=== PATIENT | female | born 1990 | race Two or more races ===

== ENCOUNTER 2018-10-24 23:27 | Emergency (ER) | payer OTHER ==
[~2018-10-24] VITALS: Ht 154.9 cm; Wt 68.0 kg
[2018-10-24] MEDS: CEFTRIAXONE 1 G in IV DEXTROSE 5% 50 ML IV ONE (23:20)
[2018-10-25] MEDS ORDERED: CEFTRIAXONE 1 G VIAL ONE (00:24)
[2018-10-25] MEDS ORDERED: SULFAMETH/TRIMETH 800/160 MG TABLET ONE (00:24)
[2018-10-25] MEDS ORDERED: OXYCODONE/APAP 5-325 MG TABLET ONE (00:24)
[2018-10-25] MEDS: SULFAMETH/TRIMETH 800/160 MG TABLET PO ONE (00:28)
[2018-10-25] MEDS: OXYCODONE/APAP 5-325 MG TABLET PO ONE (00:28)
--- NOTE | 2018-10-25 01:08 | NUR ---
IV removed. Catheter intact and site benign. Pressure and 4x4 gauze applied to site. No bleeding noted.
--- NOTE | 2018-10-25 01:12 | NUR ---
Patient discharged to home in stable conditon WITH MOTHER TAKING PATIENT HOME. Written and verbal after care instructions given. Patient verbalizes understanding of instructions.WALKED OUT OF ER WITH STEADY GAIT
[2018-10-25 01:14] VITALS: BP 118/79
== END 2018-10-25 01:16 | disposition home or self-care (01) ==
LOC: ER 23:30
DX: H60.13 Cellulitis of external ear, bilateral (principal)
CPT/HCPCS: 96365; 96366; 99283; J0696; A4663; J3490

== ENCOUNTER 2018-10-25 10:00 | Emergency (ER) | payer OTHER ==
[~2018-10-25] VITALS: Ht 154.9 cm; Wt 68.0 kg
[2018-10-25] MEDS ORDERED: diphenhydrAMINE 50 MG/1 ML VIAL IV ONE (10:15)
[2018-10-25] MEDS ORDERED: methylPREDNISolone SOD SUCC 125 MG/2 ML VIAL IV ONE (10:15)
[2018-10-25] MEDS ORDERED: FAMOTIDINE. 20 MG/2 ML VIAL IV ONE ×2 (10:15→10:24)
[2018-10-25] MEDS ORDERED: diphenhydrAMINE 50 MG/1 ML VIAL ONE (10:24)
[2018-10-25] MEDS ORDERED: methylPREDNISolone SOD SUCC 125 MG/2 ML VIAL ONE (10:24)
[2018-10-25 10:30] LABS: BASOPHILS % (AUTO) 0.8 % (0.0-2.0); EOSINOPHILS # (AUTO) 0.2 K/uL (0.0-0.7); EOSINOPHILS % (AUTO) 5.7 % (0.0-7.0); HEMATOCRIT 38.6 % (31.2-41.9); HEMOGLOBIN 13.1 g/dL (10.9-14.3); LYMPHOCYTES # (AUTO) 1.3 K/uL (20.0-40.0); LYMPHOCYTES % (AUTO) 34.7 % (20.5-51.5); MEAN CORPUSCULAR HEMOGLOBIN 29.7 uug (24.7-32.8); MEAN CORPUSCULAR HGB CONC 34 g/dL (32.3-35.6); MEAN CORPUSCULAR VOLUME 87.8 fL (75.5-95.3); MONOCYTES # (AUTO) 0.4 K/uL (2.0-10.0); MONOCYTES % (AUTO) 11.7 % (0.0-11.0); NEUTROPHILS # (AUTO) 1.7 K/uL (1.8-8.9); NEUTROPHILS % (AUTO) 47.1 % (38.5-71.5); PLATELET COUNT (AUTO) 185 K/uL (179-408); WHITE BLOOD COUNT (AUTO) 3.6 K/uL (3.8-11.8)
[2018-10-25 10:42] LABS: CREATININE 0.8 mg/dL (0.6-1.3); POTASSIUM 3.8 mmol/L (3.5-5.1)
[2018-10-25 10:47] LABS: BILIRUBIN,DIRECT 0.1 mg/dL (0.0-0.2); BILIRUBIN,TOTAL 0.5 mg/dL (0.2-1.0); TOTAL PROTEIN, SERUM 7.5 g/dL (6.4-8.2)
[2018-10-25 11:21] VITALS: BP 112/61
[2018-10-25] MEDS ORDERED: CEFTRIAXONE 1 G VIAL ONE (11:26)
[2018-10-25] MEDS ORDERED: VANCOMYCIN IV 200 ML ONE (11:26)
[2018-10-25] MEDS ORDERED: VANCOMYCIN IV 1,000 MG in IV DEXTROSE 5% 250 ML IV ONE (11:30)
[2018-10-25] MEDS ORDERED: CEFTRIAXONE 1 G in IV DEXTROSE 5% 50 ML IV ONE (11:30)
--- NOTE | 2018-10-25 11:30 | NUR ---
redness of both earlobes did not imrove after the medications administered. pt will be admitted for cellulitis
--- NOTE | 2018-10-25 12:10 | NUR ---
Patient discharged to home in stable conditon. Written and verbal after care instructions given. Patient verbalizes understanding of instructions.
--- NOTE | 2018-10-25 12:10 | NUR ---
redness in the ears cimproved, right earlobe completely cleared. aware.
== END 2018-10-25 12:22 | disposition home or self-care (01) ==
LOC: ER 10:00
DX: T78.3XXA Angioneurotic edema, initial encounter (principal); H60.13 Cellulitis of external ear, bilateral
CPT/HCPCS: 36415; 80048; 80076; 85025; 86160; 96365; 96375; 99283; J0696; J1200; J2930; J3370; J3490; A4663